=== PATIENT | male | born 1955 | race African-American/Black ===

== ENCOUNTER → 2017-06-02 | Outpatient (CLI) | payer MEDICAID ==
[2013-12-02 10:43] VITALS: BP 131/78
[~2017-06-02] MED LIST: AMITRIPTYLINE50 MG PO; NORCO 325 MG-51 TAB PO
[2017-06-02 08:56] LABS: BUN/CREATININE RATIO 11.1 (6.0-26.0); CALCIUM 8.5 mg/dL (8.4-10.2); POTASSIUM 4.5 mmol/L (3.6-5.0); TOTAL BILIRUBIN 0.3 mg/dL (0.2-1.3); TOTAL PROTEIN 9.2 g/dL (6.3-8.2)
== END ==
LOC: LAB 08:29
PROVIDERS: Family Medicine
DX: Z00.00 Encounter for general adult medical examination without abnormal findings (principal); Z12.5 Encounter for screening for malignant neoplasm of prostate; Z12.12 Encounter for screening for malignant neoplasm of rectum; I10 Essential (primary) hypertension; I42.0 Dilated cardiomyopathy; R09.81 Nasal congestion; J44.9 Chronic obstructive pulmonary disease, unspecified; R55 Syncope and collapse; M50.90 Cervical disc disorder, unspecified, unspecified cervical region; M54.9 Dorsalgia, unspecified; Z88.5 Allergy status to narcotic agent

== ENCOUNTER → 2018-06-11 | Outpatient (CLI) | payer MEDICAID ==
[2013-12-02 10:43] VITALS: BP 131/78
[2018-06-11 09:17] LABS: ALBUMIN 4.1 g/dL (3.5-5.0); CALCIUM 8.5 mg/dL (8.4-10.2); POTASSIUM 3.7 mmol/L (3.6-5.0); TOTAL BILIRUBIN 0.5 mg/dL (0.2-1.3); TOTAL PROTEIN 9.3 g/dL (6.3-8.2)
== END ==
LOC: LAB 08:34
PROVIDERS: Family Medicine
DX: I10 Essential (primary) hypertension (principal); J43.8 Other emphysema; I42.0 Dilated cardiomyopathy; R09.81 Nasal congestion

== ENCOUNTER → 2018-06-16 | Outpatient (CLI) | payer MEDICAID ==
[2013-12-02 10:43] VITALS: BP 131/78
[2018-06-16 11:11] LABS: HEMATOCRIT 42.5 % (42.0-52.0); HEMOGLOBIN 13.8 g/dL (13.5-18.0); MEAN PLATELET VOLUME 8.6 fl (7.4-10.4); RED BLOOD COUNT 5.12 M/mm3 (4.20-5.60); RED CELL DISTRIBUTION WIDTH 14.6 % (11.5-14.5); WHITE BLOOD COUNT 7.5 K/mm3 (4.8-10.8)
== END ==
LOC: LAB 10:49
PROVIDERS: Family Medicine
DX: Z00.00 Encounter for general adult medical examination without abnormal findings (principal); G47.9 Sleep disorder, unspecified; R53.83 Other fatigue

== ENCOUNTER → 2018-06-22 | Outpatient (CLI) | payer MEDICAID ==
[2013-12-02 10:43] VITALS: BP 131/78
== END ==
LOC: RAD 13:46
DX: E04.9 Nontoxic goiter, unspecified (principal); R53.83 Other fatigue

== ENCOUNTER → 2018-07-06 | Outpatient (CLI) | payer MEDICAID ==
[2013-12-02 10:43] VITALS: BP 131/78
== END ==
LOC: LAB 09:24
DX: Z12.12 Encounter for screening for malignant neoplasm of rectum (principal)

== ENCOUNTER → 2020-06-12 | Outpatient (CLI) | payer MEDICAID ==
[2013-12-02 10:43] VITALS: BP 131/78
[2020-06-12 09:53] LABS: ALBUMIN 3.6 g/dL (3.4-4.8); POTASSIUM 4.5 mmol/L (3.5-5.1)
[2020-06-12 09:54] LABS: CALCIUM 8.3 mg/dL (8.3-10.5)
[2020-06-12 09:56] LABS: TOTAL PROTEIN 9.5 g/dL (6.2-8.1)
[2020-06-12 09:58] LABS: TOTAL BILIRUBIN 0.3 mg/dL (0.2-1.2)
== END ==
LOC: LAB 09:22
PROVIDERS: Family Medicine
DX: I42.0 Dilated cardiomyopathy (principal)

== ENCOUNTER → 2020-06-16 | Outpatient (CLI) | payer MEDICAID ==
[2013-12-02 10:43] VITALS: BP 131/78
== END ==
LOC: RAD 10:26
DX: R59.0 Localized enlarged lymph nodes (principal); R91.8 Other nonspecific abnormal finding of lung field
CPT/HCPCS: Q9967

== ENCOUNTER → 2020-06-26 | Outpatient (CLI) | payer MEDICAID ==
[2013-12-02 10:43] VITALS: BP 131/78
== END ==
LOC: LAB 14:00
DX: Z00.00 Encounter for general adult medical examination without abnormal findings (principal); Z12.11 Encounter for screening for malignant neoplasm of colon

== ENCOUNTER → 2020-09-22 | Outpatient (CLI) | payer MEDICAID ==
[2020-09-22 09:16] LABS: ALBUMIN 3.2 g/dL (3.4-4.8)
[2020-09-22 09:19] LABS: TOTAL PROTEIN 9.2 g/dL (6.2-8.1)
[2020-09-22 09:21] LABS: TOTAL BILIRUBIN 0.3 mg/dL (0.2-1.2)
[2020-09-22 09:24] LABS: DIRECT BILIRUBIN 0.2 mg/dL (0.0-0.5)
== END ==
LOC: LAB 08:37
PROVIDERS: Family Medicine
DX: E78.00 Pure hypercholesterolemia, unspecified (principal)

== ENCOUNTER → 2020-09-29 | Outpatient (CLI) | payer MEDICAID | LOC: VAS 07:31 → RAD 08:00 | DX: I50.22 Chronic systolic (congestive) heart failure (principal); I25.10 Atherosclerotic heart disease of native coronary artery without angina pectoris ==

== ENCOUNTER → 2021-02-23 | Outpatient (CLI) | payer MEDICAID | LOC: LAB 13:41 | DX: Z20.822 Contact with and (suspected) exposure to COVID-19 (principal) ==

== ENCOUNTER → 2021-09-11 | Outpatient (CLI) | payer MEDICAID ==
[2021-09-11 09:24] LABS: HEMATOCRIT 37.9 % (42.0-52.0); HEMOGLOBIN 11.6 g/dL (13.5-18.0); MEAN CELL VOLUME 88 fl (78-100); MEAN CORPUSCULAR HEMOGLOBIN 27 pg (27-31); MEAN CORPUSCULAR HGB CONC 31 g/dL (33-37); PLATELET COUNT 304 K/mm3 (130-400); RED BLOOD COUNT 4.32 M/mm3 (4.20-5.60); RED CELL DISTRIBUTION WIDTH 18.3 % (11.5-14.5); WHITE BLOOD COUNT 4.7 K/mm3 (4.8-10.8)
[2021-09-11 09:40] LABS: ALBUMIN 3.5 g/dL (3.4-4.8); POTASSIUM 4.5 mmol/L (3.5-5.1)
[2021-09-11 09:41] LABS: CALCIUM 8.7 mg/dL (8.3-10.5)
[2021-09-11 09:43] LABS: TOTAL PROTEIN 7.8 g/dL (6.2-8.1)
[2021-09-11 09:44] LABS: TOTAL BILIRUBIN 0.3 mg/dL (0.2-1.2)
[2021-09-11 10:24] LABS: BAND 3 % (0-10); LYMPHOCYTE 23 % (20-51); MONOCYTE 4 % (3-10); NEUTROPHILS 68 % (42-75)
== END ==
LOC: LAB 08:27
PROVIDERS: Internal Medicine
DX: D46.22 Refractory anemia with excess of blasts 2 (principal)

== ENCOUNTER → 2021-10-16 | Outpatient (CLI) | payer MEDICAID ==
[2021-10-16 16:15] LABS: ALBUMIN 3.6 g/dL (3.4-4.8); POTASSIUM 4.1 mmol/L (3.5-5.1)
[2021-10-16 16:16] LABS: CALCIUM 8.7 mg/dL (8.3-10.5)
[2021-10-16 16:18] LABS: TOTAL PROTEIN 7.9 g/dL (6.2-8.1)
[2021-10-16 16:19] LABS: TOTAL BILIRUBIN 0.3 mg/dL (0.2-1.2)
[2021-10-16 16:23] LABS: DIRECT BILIRUBIN 0.1 mg/dL (0.0-0.5)
== END ==
LOC: LAB 15:21
PROVIDERS: Internal Medicine Interventional Cardiology
DX: I50.22 Chronic systolic (congestive) heart failure (principal)

== ENCOUNTER → 2021-10-23 | Outpatient (CLI) | payer MEDICAID ==
[2021-10-23 15:45] LABS: ALBUMIN 3.8 g/dL (3.4-4.8)
[2021-10-23 15:46] LABS: CALCIUM 8.7 mg/dL (8.3-10.5)
[2021-10-23 15:47] LABS: TOTAL PROTEIN 8.8 g/dL (6.2-8.1)
[2021-10-23 15:49] LABS: TOTAL BILIRUBIN 0.4 mg/dL (0.2-1.2)
[2021-10-23 15:53] LABS: DIRECT BILIRUBIN 0.2 mg/dL (0.0-0.5)
== END ==
LOC: LAB 15:14
PROVIDERS: Internal Medicine Interventional Cardiology
DX: I50.22 Chronic systolic (congestive) heart failure (principal)

== ENCOUNTER → 2021-11-09 | Outpatient (CLI) | payer MEDICAID ==
[2021-11-09 10:31] LABS: ALBUMIN 3.5 g/dL (3.4-4.8); POTASSIUM 4.7 mmol/L (3.5-5.1)
[2021-11-09 10:33] LABS: CALCIUM 8.6 mg/dL (8.3-10.5)
[2021-11-09 10:34] LABS: TOTAL PROTEIN 7.3 g/dL (6.2-8.1)
[2021-11-09 10:36] LABS: TOTAL BILIRUBIN 0.2 mg/dL (0.2-1.2)
[2021-11-09 10:51] LABS: BASO # 0.01 K/mm3 (0.02-0.10); EOS # 0.46 K/mm3 (0.04-0.40); HEMATOCRIT 41.5 % (42.0-52.0); HEMOGLOBIN 13.2 g/dL (13.5-18.0); LYMPH# 1.15 K/mm3 (1.50-4.00); MEAN CELL VOLUME 84 fl (78-100); MEAN CORPUSCULAR HEMOGLOBIN 27 pg (27-31); MEAN CORPUSCULAR HGB CONC 32 g/dL (33-37); MEAN PLATELET VOLUME 9.1 fl (7.4-10.4); MONO # 0.58 K/mm3 (0.20-0.80); NEU # 2.87 K/mm3 (1.40-6.50); PLATELET COUNT 277 K/mm3 (130-400); RED BLOOD COUNT 4.96 M/mm3 (4.20-5.60); RED CELL DISTRIBUTION WIDTH 16.2 % (11.5-14.5); WHITE BLOOD COUNT 5.1 K/mm3 (4.8-10.8)
== END ==
LOC: LAB 09:37
PROVIDERS: Internal Medicine
DX: C92.A0 Acute myeloid leukemia with multilineage dysplasia, not having achieved remission (principal)

== ENCOUNTER → 2021-11-13 | Outpatient (CLI) | payer MEDICAID ==
[2021-11-13 10:47] LABS: ALBUMIN 3.7 g/dL (3.4-4.8)
[2021-11-13 10:48] LABS: POTASSIUM 4.5 mmol/L (3.5-5.1)
[2021-11-13 10:49] LABS: CALCIUM 8.5 mg/dL (8.3-10.5)
[2021-11-13 10:50] LABS: TOTAL PROTEIN 7.8 g/dL (6.2-8.1)
[2021-11-13 10:52] LABS: TOTAL BILIRUBIN 0.2 mg/dL (0.2-1.2)
[2021-11-13 10:55] LABS: DIRECT BILIRUBIN 0.1 mg/dL (0.0-0.5)
== END ==
LOC: LAB 10:25
PROVIDERS: Family Medicine
DX: I50.22 Chronic systolic (congestive) heart failure (principal)

== ENCOUNTER → 2021-11-20 | Outpatient (CLI) | payer MEDICAID ==
[2021-11-20 11:53] LABS: BASO # 0.02 K/mm3 (0.02-0.10); EOS # 0.31 K/mm3 (0.04-0.40); EOS % 8.9 % (0.0-4.0); HEMOGLOBIN 13.8 g/dL (13.5-18.0); LYMPH# 1.24 K/mm3 (1.50-4.00); MEAN CELL VOLUME 83 fl (78-100); MEAN CORPUSCULAR HEMOGLOBIN 26 pg (27-31); MEAN CORPUSCULAR HGB CONC 31 g/dL (33-37); MEAN PLATELET VOLUME 7.9 fl (7.4-10.4); MONO # 0.39 K/mm3 (0.20-0.80); NEU # 1.51 K/mm3 (1.40-6.50); PLATELET COUNT 202 K/mm3 (130-400); RED BLOOD COUNT 5.31 M/mm3 (4.20-5.60); RED CELL DISTRIBUTION WIDTH 15.5 % (11.5-14.5); WHITE BLOOD COUNT 3.5 K/mm3 (4.8-10.8)
[2021-11-20 12:04] LABS: POTASSIUM 4.8 mmol/L (3.5-5.1)
[2021-11-20 12:05] LABS: CALCIUM 9.1 mg/dL (8.3-10.5)
[2021-11-20 12:06] LABS: TOTAL PROTEIN 8.8 g/dL (6.2-8.1)
[2021-11-20 12:08] LABS: TOTAL BILIRUBIN 0.3 mg/dL (0.2-1.2)
[2021-11-21 08:18] LABS: KAPPA LAMBDA RATIO 2.74 ratio (())
[2021-11-27 12:39] LABS: A/G RATIO (PEP) 0.75
== END ==
LOC: LAB 10:33
PROVIDERS: Internal Medicine
DX: C92.A0 Acute myeloid leukemia with multilineage dysplasia, not having achieved remission (principal)

== ENCOUNTER → 2023-09-15 | Outpatient (CLI) | payer MEDICARE, MEDICAID ==
[~2023-09-15] MED LIST changes: +ALDACTONE 25MG25 MG PO; +ASPIRIN E.C. 8181 MG; +FUROSEMIDE20 MG; +LISINOPRIL2.5 MG PO; +LOSARTAN POTASS25 MG PO; +METFORMIN HCL500 M2 PO; +METOPROLOL SUC100 M1 PO; +METOPROLOL SUCC25 M1 PO; +ROSUVASTATIN CA20 MG PO; +VENCLEXTA100 MG PO
== END ==
LOC: LAB 10:02
DX: E11.9 Type 2 diabetes mellitus without complications (principal)

== ENCOUNTER → 2024-04-28 | Outpatient (CLI) | payer MEDICARE, OTHER ==
[2024-04-28 12:02] LABS: BASO # 0.02 K/mm3 (0.02-0.10); EOS # 0.09 K/mm3 (0.04-0.40); EOS % 3.1 % (0.0-4.0); HEMATOCRIT 43.3 % (42.0-52.0); HEMOGLOBIN 13.9 g/dL (13.5-18.0); LYMPH# 1.46 K/mm3 (1.50-4.00); MEAN CELL VOLUME 89 fl (78-100); MEAN CORPUSCULAR HEMOGLOBIN 28 pg (27-31); MEAN CORPUSCULAR HGB CONC 32 g/dL (33-37); MEAN PLATELET VOLUME 9.1 fl (7.4-10.4); MONO # 0.06 K/mm3 (0.20-0.80); NEU # 1.31 K/mm3 (1.40-6.50); PLATELET COUNT 303 K/mm3 (130-400); RED BLOOD COUNT 4.89 M/mm3 (4.20-5.60); RED CELL DISTRIBUTION WIDTH 16.8 % (11.5-14.5)
== END ==
LOC: LAB 11:49
PROVIDERS: Internal Medicine
DX: C92.A2 Acute myeloid leukemia with multilineage dysplasia, in relapse (principal)

== ENCOUNTER → 2024-05-05 | Outpatient (CLI) | payer MEDICARE, OTHER ==
[2024-05-05 09:46] LABS: HEMATOCRIT 42.2 % (42.0-52.0); HEMOGLOBIN 13.5 g/dL (13.5-18.0); MEAN CELL VOLUME 89 fl (78-100); MEAN CORPUSCULAR HEMOGLOBIN 28 pg (27-31); MEAN CORPUSCULAR HGB CONC 32 g/dL (33-37); MEAN PLATELET VOLUME 8.3 fl (7.4-10.4); PLATELET COUNT 173 K/mm3 (130-400); RED BLOOD COUNT 4.77 M/mm3 (4.20-5.60); RED CELL DISTRIBUTION WIDTH 16.7 % (11.5-14.5); WHITE BLOOD COUNT 2.8 K/mm3 (4.8-10.8)
[2024-05-05 09:47] LABS: ALBUMIN 3.9 g/dL (3.4-4.8)
[2024-05-05 09:49] LABS: CALCIUM 8.7 mg/dL (8.3-10.5)
[2024-05-05 09:50] LABS: TOTAL PROTEIN 8.7 g/dL (6.2-8.1)
[2024-05-05 09:52] LABS: TOTAL BILIRUBIN 0.3 mg/dL (0.2-1.2)
[2024-05-05 10:32] LABS: MONOCYTE 3 % (3-10); NEUTROPHILS 33 % (42-75)
[2024-05-05 10:33] LABS: LYMPHOCYTE 60 % (20-51); POLYCHROMASIA 1+
[2024-05-05 10:34] LABS: MICROCYTOSIS 1+; OVALOCYTES 1+
== END ==
LOC: LAB 09:28
PROVIDERS: Internal Medicine
DX: C92.A2 Acute myeloid leukemia with multilineage dysplasia, in relapse (principal)

== ENCOUNTER → 2024-05-10 | Outpatient (CLI) | payer MEDICARE, MEDICAID ==
[2024-05-10 10:14] LABS: HEMOGLOBIN 12.8 g/dL (13.5-18.0); MEAN PLATELET VOLUME 7.9 fl (7.4-10.4); RED BLOOD COUNT 4.53 M/mm3 (4.20-5.60); RED CELL DISTRIBUTION WIDTH 16.9 % (11.5-14.5)
[2024-05-10 10:25] LABS: ALBUMIN 3.8 g/dL (3.4-4.8)
[2024-05-10 10:27] LABS: CALCIUM 8.6 mg/dL (8.3-10.5)
[2024-05-10 10:28] LABS: TOTAL PROTEIN 8.2 g/dL (6.2-8.1)
[2024-05-10 10:30] LABS: TOTAL BILIRUBIN 0.2 mg/dL (0.2-1.2)
== END ==
LOC: LAB 09:56
PROVIDERS: Internal Medicine
DX: C92.A2 Acute myeloid leukemia with multilineage dysplasia, in relapse (principal)

== ENCOUNTER → 2024-05-26 | Outpatient (CLI) | payer MEDICARE, MEDICAID ==
[2024-05-26 11:48] LABS: HEMATOCRIT 41.4 % (42.0-52.0); HEMOGLOBIN 13.7 g/dL (13.5-18.0); MEAN CELL VOLUME 87 fl (78-100); MEAN CORPUSCULAR HEMOGLOBIN 29 pg (27-31); MEAN CORPUSCULAR HGB CONC 33 g/dL (33-37); MEAN PLATELET VOLUME 9.3 fl (7.4-10.4); PLATELET COUNT 290 K/mm3 (130-400); RED BLOOD COUNT 4.77 M/mm3 (4.20-5.60); RED CELL DISTRIBUTION WIDTH 17.3 % (11.5-14.5); WHITE BLOOD COUNT 2.4 K/mm3 (4.8-10.8)
[2024-05-26 11:52] LABS: ALBUMIN 3.9 g/dL (3.4-4.8)
[2024-05-26 11:53] LABS: CALCIUM 8.7 mg/dL (8.3-10.5)
[2024-05-26 11:54] LABS: TOTAL PROTEIN 8.6 g/dL (6.2-8.1)
[2024-05-26 11:56] LABS: TOTAL BILIRUBIN 0.3 mg/dL (0.2-1.2)
[2024-05-26 12:08] LABS: LYMPHOCYTE 45 % (20-51); MONOCYTE 8 % (3-10); NEUTROPHILS 28 % (42-75)
== END ==
LOC: LAB 11:08
PROVIDERS: Internal Medicine
DX: C92.A2 Acute myeloid leukemia with multilineage dysplasia, in relapse (principal)

== ENCOUNTER → 2024-05-31 | Outpatient (CLI) | payer MEDICARE, MEDICAID ==
[2024-05-31 08:51] LABS: HEMATOCRIT 41.7 % (42.0-52.0); HEMOGLOBIN 13.5 g/dL (13.5-18.0); MEAN CELL VOLUME 87 fl (78-100); MEAN CORPUSCULAR HEMOGLOBIN 28 pg (27-31); MEAN CORPUSCULAR HGB CONC 32 g/dL (33-37); PLATELET COUNT 170 K/mm3 (130-400); RED BLOOD COUNT 4.81 M/mm3 (4.20-5.60); RED CELL DISTRIBUTION WIDTH 17.5 % (11.5-14.5); WHITE BLOOD COUNT 2.5 K/mm3 (4.8-10.8)
[2024-05-31 08:59] LABS: ALBUMIN 3.9 g/dL (3.4-4.8)
[2024-05-31 09:00] LABS: CALCIUM 8.8 mg/dL (8.3-10.5)
[2024-05-31 09:01] LABS: TOTAL PROTEIN 8.6 g/dL (6.2-8.1)
[2024-05-31 09:03] LABS: TOTAL BILIRUBIN 0.3 mg/dL (0.2-1.2)
[2024-05-31 09:33] LABS: LYMPHOCYTE 72 % (20-51); MONOCYTE 4 % (3-10); NEUTROPHILS 20 % (42-75)
== END ==
LOC: LAB 08:33
PROVIDERS: Internal Medicine
DX: C92.A2 Acute myeloid leukemia with multilineage dysplasia, in relapse (principal)

== ENCOUNTER → 2024-06-18 | Outpatient (CLI) | payer MEDICARE, MEDICAID ==
[2024-06-18 10:04] LABS: HEMATOCRIT 35.7 % (42.0-52.0); HEMOGLOBIN 12.3 g/dL (13.5-18.0); MEAN CELL VOLUME 81 fl (78-100); MEAN CORPUSCULAR HEMOGLOBIN 28 pg (27-31); MEAN CORPUSCULAR HGB CONC 35 g/dL (33-37); PLATELET COUNT 61 K/mm3 (130-400); RED BLOOD COUNT 4.39 M/mm3 (4.20-5.60); RED CELL DISTRIBUTION WIDTH 19.6 % (11.5-14.5)
[2024-06-18 10:10] LABS: ALBUMIN 3.6 g/dL (3.4-4.8)
[2024-06-18 10:12] LABS: CALCIUM 8.9 mg/dL (8.3-10.5)
[2024-06-18 10:13] LABS: TOTAL PROTEIN 8.7 g/dL (6.2-8.1)
[2024-06-18 10:15] LABS: TOTAL BILIRUBIN 0.6 mg/dL (0.2-1.2)
[2024-06-18 10:55] LABS: NEUTROPHILS 2 % (42-75)
[2024-06-21 13:01] LABS: LYMPHOCYTE 12 % (20-51)
[2024-06-21 13:02] LABS: BAND 0 % (0-10); METAMYELOCYTE 4 % (0-0); MONOCYTE 2 % (3-10); MYELOCYTE 2 % (0-0)
== END ==
LOC: LAB 09:47
PROVIDERS: Internal Medicine
DX: C92.A2 Acute myeloid leukemia with multilineage dysplasia, in relapse (principal)